=== PATIENT | female | born 1980 | race Caucasian/White ===

== ENCOUNTER 2018-04-16 09:12 | Day surgery (SDC) | payer MEDICAID ==
[~2018-04-16] VITALS: Ht 170.2 cm; Wt 64.1 kg
[2018-04-16] VITALS (9 sets, daily range): BP systolic 110–124; BP diastolic 71–77
[~2018-04-16 09:12] MED LIST: NO HOME MEDS; clindamycin-Cleocin 900mg/D5W 50 ML IV ONE; famotidine 20mg tablet PO ONE; ringers solution, lacted 1,000 ML IV SCH
[2018-04-16] MEDS ORDERED: LIDOcaine 1% (10mg/ml) 2ml vial ONE (09:59)
[2018-04-16 10:06] LABS: BASOPHILS % (AUTO) 0.5 % (0-1); EOSINOPHILS # (AUTO) 0.1 X10'3 (0-0.9); EOSINOPHILS % (AUTO) 1.4 % (0-6); LYMPHOCYTES # (AUTO) 1.3 X10'3 (1.1-4.8); LYMPHOCYTES % (AUTO) 21.6 % (21-51); MEAN CORPUSCULAR HEMOGLOBIN 26.4 PG (27.0-31.0); MEAN CORPUSCULAR HGB CONC 32.7 % (33.0-36.5); MEAN CORPUSCULAR VOLUME 80.7 FL (78-98); MEAN PLATELET VOLUME 8.3 FL (7.4-10.4); MONOCYTES # (AUTO) 0.4 X10'3 (0-0.9); MONOCYTES % (AUTO) 6.5 % (2-12); NEUTROPHILS # (AUTO) 4.1 X10'3 (1.8-7.7); PRE OP HEMATOCRIT 32.4 % (35.0-45.0); PRE OP PLATELET COUNT 245 X10'3 (140-440); RED BLOOD COUNT 4.01 X10'6 (4.20-5.60); RED CELL DISTRIBUTION WIDTH 16.7 % (11.5-14.5)
[2018-04-16 10:12] LABS: PRE OP HEMOGLOBIN 10.6 g/dL (12.0-16.0)
[2018-04-16 10:20] LABS: HCG SERUM QL NEGATIVE
[2018-04-16 10:21] LABS: ALBUMIN 3.4 G/DL (3.4-5.0); ALBUMIN/GLOBULIN RATIO 1.2 (1.1-1.5); ALKALINE PHOSPHATASE 63 IU/L (46-116); BLOOD UREA NITROGEN 10 MG/DL (7-18); BUN/CREATININE RATIO 10.6 (6.6-38.0); CALCIUM 8.2 MG/DL (8.5-10.1); CHLORIDE 107 MMOL/L (99-107); CREATININE 0.94 MG/DL (0.40-0.90); PRE OP ALT 14 U/L (30-65); PRE OP ANION GAP 7 (8-16); PRE OP AST 13 U/L (10-37); PRE OP BILIRUB, TOTAL 0.4 MG/DL (0.0-1.0); PRE OP GLUCOSE 96 MG/DL (70-104); PRE OP POTASSIUM 4.8 MMOL/L (3.4-5.1); PRE OP SODIUM 142 MMOL/L (135-145); TOTAL CARBON DIOXIDE 28.1 MMOL/L (24-32); TOTAL PROTEIN 6.3 G/DL (6.4-8.2); eGFR 67 ML/MIN
[2018-04-16] MEDS ORDERED: bupivacaine (with preservative) 5 mg/ml inj. 50ml ONE (11:30)
[2018-04-16] MEDS ORDERED: midazolam 2 mg/2 ml injection ONE (12:16)
[2018-04-16] MEDS ORDERED: fentaNYL/PF 50MCG/1 ML 2ML syringe ONE (12:16)
[2018-04-16] MEDS ORDERED: ringers solution, lacted 1,000 ML IV ONE (12:32)
[2018-04-16] MEDS ORDERED: labetalol 20mg/4ml (5mg/ml) syringe IV PRN (12:35)
[2018-04-16] MEDS ORDERED: hydrALAZINE 20mg/ml inj. IV PRN (12:35)
[2018-04-16] MEDS ORDERED: ondansetron/PF 4mg/2ml inj IV PRN (12:35)
[2018-04-16] MEDS ORDERED: meperidine/PF 25mg/ml syringe IV PRN ×2 (12:35)
[2018-04-16] MEDS ORDERED: morphine 4 MG/ML inj SYRINge IV PRN ×2 (12:35)
[2018-04-16] MEDS ORDERED: LIDOcaine 2% (20mg/ml) 5ml vial ONE (12:52)
[2018-04-16] MEDS ORDERED: dexamethasone sod phosphate 4mg/ml inj. ONE (12:52)
[2018-04-16] MEDS ORDERED: ondansetron/PF 4mg/2ml inj ONE (12:52)
[2018-04-16] MEDS ORDERED: propofol inj 20 ML IV ONE (12:52)
[2018-04-16] MEDS: meperidine/PF 25mg/ml syringe IV PRN ×2 (13:24→13:38)
[2018-04-16] MEDS ORDERED: acetaminophen w/codeine (30MG) #3 tablet PO PRN ×2 (13:40)
== END 2018-04-16 14:10 | disposition home or self-care (01) ==
LOC: PAS 09:12
PROVIDERS: ATTEND Surgery
DX: K43.9 Ventral hernia without obstruction or gangrene (principal); M16.10 Unilateral primary osteoarthritis, unspecified hip; M54.9 Dorsalgia, unspecified; Z88.0 Allergy status to penicillin; Z98.890 Other specified postprocedural states
CPT/HCPCS: 36415; 49560; 80053; 84703; 85025; A6449; J1100; J2001; J2175; J2250; J2405; J2704; J3010; J3490; J7120; A7000